=== PATIENT | male | born 1945 | race Caucasian/White ===

== ENCOUNTER 2023-07-20 07:32 | Inpatient (IN) ==
[2023-07-20] MEDS ORDERED: NS 0.9% 1000 ml BAG 1,000 ML IV ONE (07:44)
[2023-07-20 08:21] LABS: INR 1.4 (0.83-1.13)
[2023-07-20 08:30] LABS: Albumin 3.3 g/dL (3.2-5.2); Albumin/Globulin Ratio 1.8 (1-3); Calcium 8.2 mg/dL (8.6-10.3); Creatinine, Serum 1.48 mg/dL (0.67-1.17); Globulin 1.8 g/dL (2-4); Magnesium 1.9 mg/dL (1.9-2.7); Potassium 4.1 mmol/L (3.5-5.0); Total Bilirubin 0.2 mg/dL (0.2-1.0); Total Protein 5.1 g/dL (6.4-8.9); eGFR CKD-EPI 48.7 (>60)
[2023-07-20 08:48] LABS: ABS Lymphocytes 3.2 10^3/uL (1.0-4.8); ABS Monocytes 1.2 10^3/uL (0.0-1.1); ABS Neutrophils 14.5 10^3/uL (1.5-7.6); ABS Nucleated RBC 0.02 10^3/ul; Eosinophil % 0.1 %; Hematocrit 18.2 % (38-53); Hemoglobin 5.9 g/dL (13.2-16.3); Lymphocyte % 16.7 %; Mean Corpuscular Hemoglobin 29.2 pg (27-33); Mean Corpuscular Hgb Conc 32.2 g/dL (31-36); Mean Corpuscular Volume 90.6 fL (80-97); Mean Platelet Volume 8.6 fL (7.5-11.2); Nucleated Red Blood Cells % 0.1 %/100WBC (0.0-0.8); Platelet Count 216 10^3/uL (150-450); Red Cell Distribution Width 14.6 % (12-17); White Blood Count 18.9 10^3/uL (3.6-10.2)
[2023-07-20 08:54] LABS: TSH Ultra Thyroid Stim Horm 3.6 mcIU/mL (0.34-5.60)
[2023-07-20] MEDS ORDERED: Pantoprazole VIAL 40 MG VIAL IV ONE (09:22)
[2023-07-20 09:41] LABS: High Sensitivity Troponin 1 Hr 6 pg/mL (<20)
[2023-07-20] MEDS ORDERED: Pantoprazole 80 mg in NS BAG 80 MG/250 ML BAG IV ONE (09:45)
[2023-07-20 10:23] LABS: Urine Appearance Cloudy; Urine Bilirubin Negative (Negative); Urine Blood Negative (Negative); Urine Color Straw; Urine Glucose Negative (Negative); Urine Ketones Negative (Negative); Urine Nitrite Negative (Negative); Urine Protein Negative (Negative); Urine Specific Gravity 1.018 (1.002-1.030); Urine Urobilinogen Negative (Negative)
[2023-07-20 16:29] LABS: Hemoglobin 6.6 g/dL (13.2-16.3)
[2023-07-20 17:41] LABS: Hematocrit 20.2 % (38-53); Hemoglobin 6.7 g/dL (13.2-16.3)
[2023-07-20] MEDS: Pantoprazole VIAL 40 MG VIAL IV SCH (23:41)
[2023-07-21 01:18] LABS: Hemoglobin 8.6 g/dL (13.2-16.3)
[2023-07-21 05:52] LABS: ABS Eosinophils 0.1 10^3/uL (0.0-0.5); ABS Lymphocytes 3.9 10^3/uL (1.0-4.8); ABS Neutrophils 7.4 10^3/uL (1.5-7.6); ABS Nucleated RBC 0.05 10^3/ul; Eosinophil % 0.5 %; Hematocrit 24.4 % (38-53); Hemoglobin 8.3 g/dL (13.2-16.3); Lymphocyte % 31.2 %; Mean Corpuscular Volume 88.5 fL (80-97); Nucleated Red Blood Cells % 0.4 %/100WBC (0.0-0.8); Platelet Count 152 10^3/uL (150-450); Red Blood Count 2.76 10^6/uL (4.06-5.63); Red Cell Distribution Width 15.6 % (12-17); White Blood Count 12.5 10^3/uL (3.6-10.2)
[2023-07-21 06:10] LABS: Calcium 7.6 mg/dL (8.6-10.3); Creatinine, Serum 1.32 mg/dL (0.67-1.17); Magnesium 1.8 mg/dL (1.9-2.7); Potassium 4.1 mmol/L (3.5-5.0); eGFR CKD-EPI 55.9 (>60)
[2023-07-21] MEDS ORDERED: Magnesium Sulfate IV 1GM/100ML 1 GM/100 ML BAG IV ONE (08:08)
[2023-07-21] MEDS: Pantoprazole VIAL 40 MG VIAL IV SCH ×2 (08:16→21:40)
[2023-07-21 09:34] LABS: Hematocrit 25.5 % (38-53); Hemoglobin 8.8 g/dL (13.2-16.3)
[2023-07-21] MEDS ORDERED: Midazolam 10 mg/10 ml VIAL 1 mg/ml 10 ml VIAL (10 mg) ONE (13:05)
[2023-07-21] MEDS ORDERED: fentaNYL 100 mcg/2 ml 50 MCG/ML VIAL ONE (13:05)
[2023-07-22 06:14] LABS: ABS Eosinophils 0.2 10^3/uL (0.0-0.5); ABS Lymphocytes 2.7 10^3/uL (1.0-4.8); ABS Monocytes 0.7 10^3/uL (0.0-1.1); ABS Neutrophils 5.2 10^3/uL (1.5-7.6); ABS Nucleated RBC 0.01 10^3/ul; Eosinophil % 2.2 %; Hematocrit 22.9 % (38-53); Lymphocyte % 30.9 %; Mean Corpuscular Hemoglobin 30.9 pg (27-33); Mean Corpuscular Hgb Conc 34.7 g/dL (31-36); Mean Platelet Volume 8.2 fL (7.5-11.2); Nucleated Red Blood Cells % 0.1 %/100WBC (0.0-0.8); Platelet Count 167 10^3/uL (150-450); Red Blood Count 2.57 10^6/uL (4.06-5.63); Red Cell Distribution Width 16.2 % (12-17); White Blood Count 8.8 10^3/uL (3.6-10.2)
[2023-07-22 06:33] LABS: Calcium 7.6 mg/dL (8.6-10.3); Creatinine, Serum 1.4 mg/dL (0.67-1.17); Potassium 3.8 mmol/L (3.5-5.0); eGFR CKD-EPI 52.1 (>60)
[2023-07-22] MEDS: Pantoprazole VIAL 40 MG VIAL IV SCH ×2 (08:27→21:16)
[2023-07-22] MEDS ORDERED: Sacubitril/Valsartan 97/103(NF) PO SCH (21:00)
[2023-07-23 06:04] LABS: ABS Eosinophils 0.2 10^3/uL (0.0-0.5); ABS Lymphocytes 2.2 10^3/uL (1.0-4.8); ABS Monocytes 0.6 10^3/uL (0.0-1.1); ABS Neutrophils 5.2 10^3/uL (1.5-7.6); ABS Nucleated RBC 0.01 10^3/ul; Eosinophil % 2.5 %; Hemoglobin 10.3 g/dL (13.2-16.3); Lymphocyte % 26.6 %; Mean Corpuscular Hemoglobin 31.1 pg (27-33); Mean Corpuscular Hgb Conc 34.2 g/dL (31-36); Mean Corpuscular Volume 90.8 fL (80-97); Mean Platelet Volume 8.7 fL (7.5-11.2); Nucleated Red Blood Cells % 0.1 %/100WBC (0.0-0.8); Platelet Count 195 10^3/uL (150-450); Red Blood Count 3.31 10^6/uL (4.06-5.63); Red Cell Distribution Width 16.1 % (12-17); White Blood Count 8.2 10^3/uL (3.6-10.2)
[2023-07-23 06:22] LABS: Calcium 8.4 mg/dL (8.6-10.3); Creatinine, Serum 1.39 mg/dL (0.67-1.17); Magnesium 1.9 mg/dL (1.9-2.7); Potassium 3.5 mmol/L (3.5-5.0); eGFR CKD-EPI 52.5 (>60)
[2023-07-23 07:43] VITALS: BP 132/64
[2023-07-23] MEDS: Pantoprazole VIAL 40 MG VIAL IV SCH (07:54)
[2023-07-23] MEDS ORDERED: Pantoprazole VIAL 40 MG VIAL IV ONE (16:00)
== END 2023-07-23 16:55 | disposition home or self-care (01) | DRG 378 ==
LOC: ED 07:32 → EDHOLD 07:32 → SUATTDRO 11:03 → MEDTELE 18:07
PROVIDERS: ADMIT Internal Medicine; ATTEND Hospitalist